=== PATIENT | male | born 1975 | race Caucasian/White ===

== ENCOUNTER → 2021-02-14 07:44 | Outpatient (CLI) | payer OTHER, SELFPAY ==
[2021-02-14 20:43] LABS: COVID19 - ORCAS (NP or Nasal) Negative (Negative)
== END ==
PROVIDERS: Visit Provider Family Medicine
DX: Z20.822 Contact with and (suspected) exposure to COVID-19 (principal)
CPT/HCPCS: U0003

== ENCOUNTER → 2021-09-01 10:38 | Outpatient (CLI) | payer OTHER, SELFPAY ==
[2021-09-01 20:24] LABS: COVID19 - ORCAS (NP or Nasal) Negative (Negative)
== END ==
PROVIDERS: PCP Family Medicine; Visit Provider Family Medicine
DX: Z20.822 Contact with and (suspected) exposure to COVID-19 (principal)
CPT/HCPCS: U0003

== ENCOUNTER → 2021-12-08 14:41 | Outpatient (CLI) | payer OTHER, SELFPAY ==
--- NOTE | 2021-12-08 | DI.ECHO.S_ITS ---
[place]---------+ [facility] +---------+ : : [address] : : : : [id number] : : : : Phone: [phone] +---------+ Echocardiogram Report + + :Name: SREE CAMACHO Study Date: 12/08/2021 Height: 70 in : :[facility] ReadingLocation: Weight: 150 lb : : Gender: Male BSA: 1.8 m2 : :: 1975 Age: 46 yrs BP: 126/86 mmHg: :Reason For Study: Mitral Valve- Prolapse : :Ordering Physician: PRICILA, : :MARLYS Performed By: Izaiah Morelos : :Referring: MARLYS MCNULTY : + + Interpretation Summary The ejection fraction is estimated to be 65-70%. The left atrium is mildly dilated. There is prolapse of the posterior mitral valve leaflet(s). There is severe mitral regurgitation. There is an eccentric jet of mitral regurgitation that is directed anteriorly. Procedure: A two-dimensional transthoracic echocardiogram with color flow and Doppler was performed. The study quality was technically adequate. There is no prior echocardiogram noted for this patient. Left Ventricle: The left ventricle is normal in size and wall thickness. Left ventricular systolic function is normal. The ejection fraction is estimated to be 65-70%. There are no focal wall motion abnormalities. Diastolic parameters suggest probable normal left ventricular diastolic function and normal filling pressures. Right Ventricle: The right ventricle is normal in size and function. Atria: The left atrium is mildly dilated. Right atrial size is normal. The interatrial septum grossly appears intact with no obvious evidence for an atrial septal defect. Mitral Valve: There is prolapse of the posterior mitral valve leaflet(s). There is severe mitral regurgitation. There is an eccentric jet of mitral regurgitation that is directed anteriorly. Aortic Valve: The aortic valve is normal in structure and function. There is trace aortic regurgitation. Tricuspid Valve: The tricuspid valve is normal in structure and function. There is trace tricuspid regurgitation. Pulmonary artery pressures cannot be estimated because of the lack of a measurable TR jet velocity. Pulmonic Valve: The pulmonic valve is normal in structure and function. There is trace pulmonic regurgitation. Great Vessels: The aortic root is normal size. The dimensions of the ascending aorta are normal. The IVC is of normal diameter and collapses greater than 50% with a sniff. This suggests a low right atrial pressure of 3 mm Hg. Pericardium/ Pleura There is no pericardial effusion. There is no pleural effusion. MMode/2D Measurements & Calculations LVIDd: 5.8 cm LVOT diam: 2.2 cm LVIDs: 3.7 cm Ao root diam: 3.4 cm FS: 36.2 % asc Aorta Diam: 3.1 cm IVSd: 0.90 cm LVPWd: 0.70 cm LV kahn. diameter/BSA (cm/m^2): 3.1 LV sys. diameter/BSA (cm/m^2): 2.0 LA dimension: 4.2 cm RA long axis: 5.0 cm LA A2 area: 20.0 cm2 LA A4 area: 19.7 cm2 LA length (vol): 5.3 cm LA vol: 63.0 ml LA vol index: 34.1 ml/m2 TAPSE_phl: 2.4 cm Doppler Measurements & Calculations Ao V2 max: 144.0 cm/sec LVOT Max Emmanuel: 110.0 cm/sec Ao V2 mean: 101.0 cm/sec LV V1 max P.8 mmHg Ao max P.0 mmHg LV V1 VTI: 15.2 cm Ao mean P.0 mmHg NGOC(I,D): 2.9 cm2 Ao V2 VTI: 19.9 cm NGOC(V,D): 2.9 cm2 sev ratio: 0.76 NGOC indexed to BSA (cm^2/m^2): 1.6 MV E max emmanuel: 89.5 cm/sec SV(LVOT): 57.8 ml MV A max emmanuel: 63.8 cm/sec MV E/A: 1.4 Med Peak E' Emmanuel: 10.2 cm/sec E/E' med: 8.8 Lat Peak E' Emmanuel: 15.1 cm/sec E/E' lat: 5.9 E/e' average: 7.4 MV dec time: 0.23 sec AV VR_phl: 0.76 MV P1/2t-pr_phl: 66.0 msec NGOC(VTI)/BSA_phl: 1.6 Reading Physician:03:57 PM
== END ==
PROVIDERS: PCP Family Medicine; Referring Provider Family Medicine; Visit Provider Family Medicine
DX: I34.1 Nonrheumatic mitral (valve) prolapse (principal); I34.0 Nonrheumatic mitral (valve) insufficiency
CPT/HCPCS: 93306

== ENCOUNTER → 2022-06-01 07:15 | Outpatient (CLI) | payer OTHER, SELFPAY ==
[2022-06-01 21:45] LABS: COVID19 - ORCAS (NP or Nasal) Negative (Negative)
== END ==
PROVIDERS: PCP Family Medicine; Visit Provider Family Medicine
DX: Z20.822 Contact with and (suspected) exposure to COVID-19 (principal)
CPT/HCPCS: U0003

== ENCOUNTER → 2022-07-21 14:16 | Outpatient (CLI) | payer OTHER, SELFPAY ==
[2022-07-21 20:47] LABS: Urine N gonorrhoeae NOT DETECTED
[2022-07-21 21:07] LABS: Urine Chlamydia NOT DETECTED
[2022-07-23 09:14] LABS: RPR Screen Non Reactive (Non Reactive)
[2022-07-23 15:55] LABS: HIV 1 & 2 Ab/Ag 4th Gen Combo NEGATIVE (NEGATIVE)
== END ==
PROVIDERS: PCP Family Medicine; Visit Provider Physician Assistant
DX: R86.8 Other abnormal findings in specimens from male genital organs (principal)
CPT/HCPCS: 86592; 87086; 87389; 87491; 87591

== ENCOUNTER → 2022-08-04 15:20 | Outpatient (CLI) | payer OTHER, SELFPAY ==
--- NOTE | 2022-08-04 15:23 | DI.US.S_ITS ---
PROCEDURE: US SCROTUM INDICATIONS: testicular pain/discomfort TECHNIQUE: Real-time scanning was performed of the scrotum and testicles, with image documentation. Color and pulse Doppler interrogation was performed of both testicles. COMPARISON: None. FINDINGS: Right: Testicle is normal in size at 4.9 x 2.6 x 3.4 cm, and homogenous in echotexture. Epididymis is normal in overall size and morphology. A varicocele is present. No hydrocele. Overlying scrotal skin is normal in thickness. Left: Testicle is normal in size at 4.8 x 2.4 x 3.3 cm, and homogeneous in echotexture. Epididymis is normal in overall size and morphology. 10 mm left epididymal cyst. A varicocele is present. No hydrocele. Overlying scrotal skin is normal in thickness. Doppler: Color and pulse Doppler demonstrate normal and symmetric arterial flow in both testicles. IMPRESSION: 1. Bilateral varicoceles. 2. No evidence of testicular mass, testicular torsion, epididymitis, or orchitis. Dictated by: Javier Benítez M.D. on 08/04/2022 at 16:27 Approved by: Javier Benítez M.D. on 08/04/2022 at 16:30
== END ==
PROVIDERS: PCP Family Medicine; Referring Provider Physician Assistant; Visit Provider Physician Assistant
DX: I86.1 Scrotal varices (principal); N30.00 Acute cystitis without hematuria
CPT/HCPCS: 76870

== ENCOUNTER → 2022-08-27 11:04 | Outpatient (CLI) | payer OTHER, SELFPAY | PROVIDERS: PCP Family Medicine; Visit Provider Family Medicine | DX: N41.1 Chronic prostatitis (principal) | CPT/HCPCS: 87070; 87075; 87077; 87186; 87205 ==

== ENCOUNTER → 2022-09-23 09:15 | Outpatient (CLI) | payer OTHER, SELFPAY | PROVIDERS: PCP Family Medicine; Referring Provider Family Medicine; Visit Provider Family Medicine | DX: N41.1 Chronic prostatitis (principal) | CPT/HCPCS: 87070; 87147; 87205 ==

== ENCOUNTER → 2022-12-24 09:04 | Outpatient (CLI) | payer OTHER, SELFPAY ==
[2022-12-24 19:40] LABS: Add Manual Diff / Slide Review NO; Basophils Absolute Auto 0 /uL (0-100); Basophils Percent Auto 0.9 % (0-2); Eosinophils Absolute Auto 100 /uL (0-450); Eosinophils Percent Auto 2.1 % (2-4); Hematocrit 40.9 % (41-53); Hemoglobin 14.2 g/dL (13.5-17.5); Lymphocytes Absolute Auto 1700 /uL (1100-4500); Lymphocytes Percent Auto 39.7 % (25-40); Mean Corpuscular HGB Conc 34.8 % (30-36); Mean Corpuscular Hemoglobin 29.7 PG (26-34); Mean Corpuscular Volume 85.1 fL (80-100); Monocytes Absolute Auto 400 /uL (0-900); Monocytes Percent Auto 10.4 % (3-14); Neutrophils Absolute Auto 2000 /uL (1500-7000); Neutrophils Percent Auto 46.9 % (50-75); Platelet Count 232 X10^3/uL (150-400); Red Blood Cell Count 4.81 X10^6/uL (4.5-5.9); Red Cell Distribution Width 13.9 % (11.6-14.8); White Blood Cell Count 4.2 X10^3/uL (4.5-11.0)
[2022-12-24 19:50] LABS: Alanine Aminotransferase 155 IU/L (<50); Albumin 3.9 g/dL (3.5-5.0); Albumin Globulin Ratio 1.3 (1.0-2.8); Alkaline Phosphatase 88 U/L (38-126); Aspartate Aminotransferase 74 IU/L (17-59); BUN Creatinine Ratio 11.4 (6-22); Bilirubin Total 0.6 mg/dL (0.2-1.3); Blood Urea Nitrogen 9 mg/dL (9-20); C-Reactive Protein Quant < 0.5 mg/dL (<1.0); Calcium 9.6 mg/dL (8.4-10.2); Carbon Dioxide 25 mmol/L (22-32); Chloride 104 mmol/L (98-107); Estimated Glomerular Filt Rate > 60 mL/min (>60); Globulin 2.9 g/dL (1.7-4.1); Glucose 121 mg/dL (70-100); HEMOLYSIS < 15 (0-50); Potassium 4.3 mmol/L (3.4-5.1); Sodium 137 mmol/L (137-145); Total Protein 6.8 g/dL (6.3-8.2)
[2022-12-24 19:57] LABS: Erythrocyte Sedimentation Rate 4 MM/HR (0-15)
[2022-12-24 20:16] LABS: TSH w/ Reflex to FT4 3.25 uIU/mL (0.47-4.68)
== END ==
PROVIDERS: PCP Family Medicine; Visit Provider Family Medicine
DX: Z86.19 Personal history of other infectious and parasitic diseases (principal); Z87.438 Personal history of other diseases of male genital organs; Z87.74 Personal history of (corrected) congenital malformations of heart and circulatory system; Z98.890 Other specified postprocedural states
CPT/HCPCS: 80053; 84443; 85025; 85651; 86140

== ENCOUNTER → 2023-01-07 07:53 | Outpatient (CLI) | payer OTHER, SELFPAY ==
--- NOTE | 2023-01-07 | DI.ECHO.S_ITS ---
[place] +---------+ [facility] +---------+ : : [address] : [address] : : : : [id number] : : : : Phone: [phone] : [phone] +---------+ Echocardiogram Report + + :Name: SREE CAMACHO Study Date: 01/07/2023 Height: 70 in : :[facility] ReadingLocation: Weight: 155 lb : : Gender: Male BSA: 1.9 m2 : :: 1975 Age: 47 yrs BP: 107/83 mmHg: :Reason For Study: S/P Mitral Valve Repair : :Ordering Physician: Gil, : :Leyda Performed By: Courtney Velásquez : :Referring: Leyda Cordero : + + Interpretation Summary The ejection fraction is estimated to be 40-45%. The right ventricle is normal in size and function. There is moderate thickening of the mitral valve leaflets. The posterior mitral valve leaflet appears consistent with a mitral valve repair. The chordae appear consistent with neoord placement. There is mild to moderate mitral regurgitation. There is a moderate left-sided pleural effusion. Procedure: A two-dimensional transthoracic echocardiogram with color flow and Doppler was performed in limited views only. The study quality was technically good. Comparison is made with the echocardiogram of 12/08/2021. The patient was in normal sinus rhythm during the exam. Left Ventricle: The left ventricle is normal in size. The ejection fraction is estimated to be 40-45%. Septal motion is consistent with post-operative state. Right Ventricle: The right ventricle is normal in size and function. Mitral Valve: There is moderate thickening of the mitral valve leaflets. The posterior mitral valve leaflet appears consistent with a mitral valve repair. The chordae appear consistent with neoord placement. An annuloplasty ring is noted in the mitral position. There is no mitral valve stenosis. The mitral valve mean gradient is 2 mmHg. There is mild to moderate mitral regurgitation. Aortic Valve: The aortic valve opens well. Tricuspid Valve: The tricuspid valve is normal. There is mild tricuspid regurgitation. The right ventricular systolic pressure is estimated to be at least 21 mmHg based on an estimated right atrial pressure of 3 mm Hg. Great Vessels: The IVC is of normal diameter and collapses greater than 50% with a sniff. This suggests a low right atrial pressure of 3 mm Hg. Pericardium/ Pleura There is no pericardial effusion. There is a moderate left-sided pleural effusion. MMode/2D Measurements & Calculations LVLs ap4: 6.5 cm LVLd ap2: 7.5 cm LVLs ap2: 7.1 cm Doppler Measurements & Calculations TR max keith: 209.0 cm/sec MV V2 mean: 71.5 cm/sec TR max P.5 mmHg MV mean P.0 mmHg MV V2 VTI: 21.7 cm Reading Physician:03:38 PM
== END ==
PROVIDERS: PCP Family Medicine; Referring Provider Registered Nurse; Visit Provider Registered Nurse
DX: J90 Pleural effusion, not elsewhere classified (principal); Z98.890 Other specified postprocedural states; I08.1 Rheumatic disorders of both mitral and tricuspid valves
CPT/HCPCS: 93307

== ENCOUNTER → 2023-03-29 14:31 | Outpatient (CLI) | payer OTHER, SELFPAY ==
[2023-03-29 19:20] LABS: Alanine Aminotransferase 37 IU/L (<50); Albumin 3.9 g/dL (3.5-5.0); Albumin Globulin Ratio 1.3 (1.0-2.8); Alkaline Phosphatase 78 U/L (38-126); Aspartate Aminotransferase 35 IU/L (17-59); Bilirubin Total 0.9 mg/dL (0.2-1.3); Bilirubin Unconjugated 0.6 mg/dL (0.0-1.1); Globulin 3.1 g/dL (1.7-4.1); HEMOLYSIS < 15 (0-50)
== END ==
PROVIDERS: PCP Family Medicine; Visit Provider Family Medicine
DX: R79.89 Other specified abnormal findings of blood chemistry (principal)
CPT/HCPCS: 80076

== ENCOUNTER → 2023-11-15 13:48 | Outpatient (CLI) | payer OTHER, SELFPAY ==
[2023-11-15 19:28] LABS: Add Manual Diff / Slide Review NO; Basophils Absolute Auto 0 /uL (0-100); Basophils Percent Auto 0.6 % (0-2); Eosinophils Absolute Auto 100 /uL (0-450); Eosinophils Percent Auto 2.1 % (2-4); Hematocrit 47.1 % (41-53); Hemoglobin 16.5 g/dL (13.5-17.5); Lymphocytes Absolute Auto 2000 /uL (1100-4500); Mean Corpuscular HGB Conc 35.1 % (30-36); Mean Corpuscular Hemoglobin 31.6 PG (26-34); Monocytes Absolute Auto 700 /uL (0-900); Monocytes Percent Auto 9.4 % (3-14); Neutrophils Absolute Auto 4200 /uL (1500-7000); Neutrophils Percent Auto 58.9 % (50-75); Platelet Count 159 X10^3/uL (150-400); Red Blood Cell Count 5.24 X10^6/uL (4.5-5.9); Red Cell Distribution Width 13.4 % (11.6-14.8); White Blood Cell Count 7.1 X10^3/uL (4.5-11.0)
[2023-11-15 19:43] LABS: C-Reactive Protein Quant 2.3 mg/dL (<1.0)
[2023-11-15 19:53] LABS: Erythrocyte Sedimentation Rate 3 MM/HR (0-15)
== END ==
PROVIDERS: PCP Family Medicine; Visit Provider Family Medicine
DX: M71.9 Bursopathy, unspecified (principal); Z98.890 Other specified postprocedural states
CPT/HCPCS: 85025; 85651; 86140; 87040

== ENCOUNTER → 2024-06-22 13:50 | Outpatient (CLI) | payer OTHER, SELFPAY ==
[2024-06-22 14:29] LABS: Mean Corpuscular Hemoglobin 32.1 PG (26-34); Mean Corpuscular Volume 89.4 fL (80-100); Platelet Count 181 X10^3/uL (150-400); Red Blood Cell Count 5.59 X10^6/uL (4.5-5.9); Red Cell Distribution Width 13.4 % (11.6-14.8); White Blood Cell Count 5.9 X10^3/uL (4.5-11.0)
[2024-06-22 14:44] LABS: Alanine Aminotransferase 29 IU/L (<50); Albumin 4.5 g/dL (3.5-5.0); Albumin Globulin Ratio 1.4 (1.0-2.8); Alkaline Phosphatase 67 U/L (38-126); Aspartate Aminotransferase 38 IU/L (17-59); BUN Creatinine Ratio 18.3 (6-22); Bilirubin Total 1.2 mg/dL (0.2-1.3); Blood Urea Nitrogen 13 mg/dL (9-20); Calcium 9.3 mg/dL (8.4-10.2); Carbon Dioxide 30 mmol/L (22-32); Chloride 104 mmol/L (98-107); Estimated Glomerular Filt Rate > 60 mL/min (>60); Globulin 3.3 g/dL (1.7-4.1); Glucose 87 mg/dL (70-100); Magnesium 2.1 mg/dL (1.6-2.3); Sodium 139 mmol/L (137-145); Total Protein 7.8 g/dL (6.3-8.2)
[2024-06-22 14:46] LABS: HEMOLYSIS 65 (0-50); Potassium 4.6 mmol/L (3.4-5.1)
== END ==
PROVIDERS: PCP Family Medicine; Referring Provider Nurse Practitioner; Visit Provider Nurse Practitioner
DX: I49.3 Ventricular premature depolarization (principal)
CPT/HCPCS: 36415; 80053; 83735; 84443; 85027

== ENCOUNTER → 2024-11-29 13:03 | Outpatient (CLI) | payer OTHER, SELFPAY ==
[2024-11-29 19:46] LABS: Add Manual Diff / Slide Review NO; Hematocrit 47.4 % (41-53); Hemoglobin 16.7 g/dL (13.5-17.5); Lymphocytes Absolute Auto 2500 /uL (1100-4500); Mean Corpuscular HGB Conc 35.1 % (30-36); Mean Corpuscular Hemoglobin 31.1 PG (26-34); Mean Corpuscular Volume 88.5 fL (80-100); Platelet Count 160 X10^3/uL (150-400)
[2024-11-29 19:49] LABS: Blood Urea Nitrogen 20 mg/dL (9-20); Calcium 9.5 mg/dL (8.4-10.2); Carbon Dioxide 28 mmol/L (22-32); Chloride 102 mmol/L (98-107); Cholesterol 217 mg/dL (140-199); Estimated Glomerular Filt Rate > 60 mL/min (>60); Glucose 98 mg/dL (70-99); HDL Cholesterol 23 mg/dL (40-60); HEMOLYSIS 20 (0-50); Potassium 4.3 mmol/L (3.4-5.1); Sodium 138 mmol/L (137-145); Triglycerides 392 mg/dL (35-150)
[2024-11-29 20:21] LABS: Prostate Specific Antigen 0.864 ng/mL (0.10-4.00)
== END ==
PROVIDERS: PCP Family Medicine; Visit Provider Family Medicine
DX: Z13.6 Encounter for screening for cardiovascular disorders (principal); Z13.1 Encounter for screening for diabetes mellitus; Z98.890 Other specified postprocedural states; Z12.5 Encounter for screening for malignant neoplasm of prostate
CPT/HCPCS: 80048; 80061; 84153; 85025

== ENCOUNTER 2025-01-30 07:00 | Day surgery (SDC) | payer OTHER, SELFPAY ==
--- NOTE | 2025-01-30 | PATH_ITS ---
[facility] Accession Number: [id number] No. of containers..02 Tissue . 01 Material submitted: . PART A: colon - TRANSVERSE POLYP PART B: colon - CECAL POLYPS X2 . 01 Diagnosis: A. TRANSVERSE COLON POLYP: Colonic mucosa with no diagnostic abnormality, consistent with polypoid redundancy. Deeper level examination performed. . B. CECAL POLYPS: Colonic mucosa with benign lymphoid aggregate. Additional colonic mucosa with no significant pathologic alteration. Deeper level examination performed. MRV 02/07/2025 1245 Local . 01 Electronically signed: . Janice Rm MD, Pathologist NPI- [id number] . 01 Gross description: . Received are two formalin-filled containers both labeled with the patient's name. . A. In a container labeled transverse polyp, is one fragment of wayne, soft tissue which measures 0.2 x 0.2 x 0.1 cm. The specimen is totally submitted in cassette A1. B. In a container labeled cecal polyp x2, are two fragments of wayne, soft tissue which range in size from 0.2 x 0.2 x 0.2 cm to 0.6 x 0.4 x 0.3 cm. All fragments are totally submitted in cassette B1. ([id number]) /LYNDA 02/02/2025 0443 Local . 01 Pathologist provided ICD-10: Z12.11, K63.89 . 01 CPT . 062635, 719960 Specimen Comment: A courtesy copy of this report has been sent to [facility] Performed at: [address] [address], [place], [place] [id number] MD Mirza Andino MD Phone: [phone]
--- NOTE | 2025-01-30 06:15 | PM.HP.IH.1 ---
History of Present Illness History of Present Illness Date Patient Seen: 01/30/25 Time Patient Seen: 06:15 Chief complaint: SDC Narrative: Patient presents for screening colonoscopy today. Prior scope 20 years ago. [facility] Medical History (Updated 01/30/25 @ 06:16 by Albert Rangel MD) History of prostatitis Lower urinary tract symptoms History of chlamydia History of syphilis Migraines Aortic regurgitation (~2013) Skin cancer (~2011) Surgical History (Updated 12/16/22 @ 08:56 by James Arndt MD) Hx of mitral valve repair Melanoma (~2011) Family History Grandmother Brain tumor Uncle Cancer Aunt Stroke Father Hearing impairment Social History marital status: number of children: 0 occupational status: employed alcohol intake: current caffeine: Yes Type(s) of exercise: walking frequency: daily additional social history: works at [employer] -- 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 Meds Home Medications and Allergies Home Medications ?Medication ?Instructions ?Recorded ?Confirmed ?Type azelastine 137 mcg (0.1 %) nasal ml intranasal 07/21/22 11/17/24 History spray aspirin 81 mg chewable tablet 1 tab PO DAILY 11/24/22 11/17/24 History cetirizine 10 mg tablet (Zyrtec) 10 mg PO DAILY PRN 12/16/22 11/17/24 History hydrocortisone 1 % topical cream 1 applic topical BID PRN rash 04/25/24 11/17/24 Rx #28.35 grams emtricitabine 200 mg-tenofovir 1 tab PO DAILY #28 tabs 07/04/24 11/17/24 Rx disoproxil fumarate 300 mg tablet (Truvada) ketoconazole 2 % shampoo 1 applic topical Q2W #120 mL 10/11/24 11/17/24 Rx metoprolol succinate 25 mg 25 mg PO DAILY PRN 10/11/24 11/17/24 History tablet,extended release 24 hr sodium,potassium,mag sulfates 17.5 See Rx Instructions PO .COMPLEX 12/25/24 Rx gram-3.13 gram-1.6 gram oral soln #354 mL (Suprep Bowel Prep Kit) Allergies Allergy/AdvReac Type Severity Reaction Status Date / Time codeine AdvReac Mild Vomiting Verified 11/17/24 12:02 Exam Narrative Exam Narrative: Const General: comfortable Orientation: alert and oriented x3 Resp Effort & Inspection: normal respiratory effort and able to speak in complete sentences Cardio Rate: regular rate GI Palpation: soft (NT) Extrem General: no pedal edema and no calf tenderness Assessment & Plan Assessment and plan (1) Encounter for screening colonoscopy: Status: Acute Plan Plan screening colonoscopy. The risks, benefits and options regarding the procedure were explained to the patient in detail. Risk discussion included but not limited to: bleeding, perforation, missed lesion, unable to reach cecum. The patient was encouraged to ask questions and they were answered to their satisfaction. The patient understands and is agreeable to proceed. Time-Based Coding :: [TOTAL MINUTES] spent with patient and on the chart (including review of chart, obtaining history, exam, reviewing outside data, placing orders, documenting exam and treatment plan, and counseling patient) on [DATE]. 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
[2025-01-30 07:25] VITALS: BP 122/82; PULSE 69; RESP 16; TEMP 36.1; O2SAT 95
[2025-01-30] MEDS: LACTATED RINGERS 1,000 ML 42 ML IV (07:50)
--- NOTE | 2025-01-30 08:40 | PM.OP.COLON ---
Operative Date/Time/Diagnoses Date of procedure: 01/30/25 Time of procedure: 09:15 Pre-op diagnosis: +FH for colon cancer Post-op diagnosis: other (Polyps) Procedure & Clinicians Study performed: Colonoscopy with polypectomy Same procedure(s) as scheduled: Yes Indications: 49yo M, +FH in paternal grandfather and grandfather's brother. Last colonoscopy in [place] 20 years ago. H/O mitral valve replacement. H/O waking up during anesthesia Surgeon: Albert Rangel Anesthesia Type: MAC +/- Procedure Notes SCOAP/Timeout: Performed Procedure in detail: Colonoscopy Patient placed in left lateral recumbent position. Time out was performed. Procedural sedation was administered by anesthesia. Examination began with a thorough inspection of the perianal area. There was no evidence of fissures, fistulae, external hemorrhoids or cutaneous malignancy. The colonoscope was then placed into the rectum and the lumen was insufflated with carbon dioxide. The scope was carefully advanced forward. Ultimately the cecum was intubated and confirmed by identification of the ileocecal valve, the appendiceal orifice and the confluence of the taenia. The scope was then slowly withdrawn examining the colon thoroughly in all directions. In the rectum, retroflexion of the scope was performed for inspection of the distal rectum and anal canal. ?Significant colonoscopy findings: ?1. Quality of the preparation-good, [place] 2-3, improved with irrigation/suction ?2. Multiple polyps removed from transverse and ascending colon, benign appearing 3-5mm polyps, removed with cold snare and retrieved for pathology, one in transverse colon, two in cecum. Cecum had multiple similar appearing polyps, we sampled two of the largest polyps for pathology. 3. Few sigmoid diverticulae Scope withdrawal time: 6 Findings: divertiulosis and polyp(s) Specimen(s): other (polyps) Complications: none Impression: Polyps in cecum and transverse colon Plan next colonoscopy in 5 years Post-procedure Recommendations: Colonoscopy in 5 years Plan for aftercare: PACU then home Follow up: as needed Disposition: PACU
[2025-01-30 09:14] VITALS: BP 95/54; PULSE 62; RESP 12; TEMP 36.2; O2SAT 98
[2025-01-30 09:23] VITALS: BP 96/60; PULSE 61; RESP 17; TEMP 36.2; O2SAT 96
[2025-01-30 09:34] VITALS: BP 105/73; PULSE 64; RESP 15; TEMP 36.1; O2SAT 100
[2025-01-30 10:03] VITALS: BP 118/78; PULSE 70; RESP 16; O2SAT 98
== END 2025-01-30 10:02 | disposition home or self-care (01) ==
PROVIDERS: PCP Family Medicine; Referring Provider Surgery; Visit Provider Surgery
PROC: 0DJD8ZZ Inspection of Lower Intestinal Tract, Via Natural or Artificial Opening Endoscopic (ICD-10-PCS; CPT 45378; principal; 2025-01-30 08:15)
DX: Z12.11 Encounter for screening for malignant neoplasm of colon (principal); Z80.0 Family history of malignant neoplasm of digestive organs; K57.30 Diverticulosis of large intestine without perforation or abscess without bleeding; K63.5 Polyp of colon
CPT/HCPCS: 45385; J2704